=== PATIENT | female | born 1960 | race African-American/Black ===

== ENCOUNTER 2016-07-17 09:44 | Inpatient (IN) | payer OTHER ==
[2016-07-17 09:59] VITALS: BMI 36.3
--- NOTE | 2016-07-17 11:02 | HP ---
COWS - Scale Resting Pulse: 1= [place] 81-100 Sweatin=Flushed/Facial Moisture Restless Observation: 3= Extraneous Movement Pupil Size: 2= Moderately Dilated Bone or Joint Aches: 2= Severe Diffuse Aches Runny Nose/ Eye Tearin= Runny Nose/Eyes GI Upset > 30mins: 3= Vomiting/Diarrhea Tremor Observation: 2= Slight Tremor Visible Yawning Observation: 2= >3x During Session Anxiety or Irritability: 2=Irritable/Anxious Goose Flesh Skin: 0=Smooth Skin COWS Score: 21 CIWA Score - CIWA Score Nausea/Vomitin Muscle Tremors: 3 Anxiety: 3 Agitation: 3 Paroxysmal Sweats: 2 Orientation: 0-Oriented Tacttile Disturbances: 2-Mild Itch/Numbness/Burn Auditory Disturbances: 2-Mild Harshness/Frighten Visual Disturbances: 2-Mild Sensitivity Headache: 2-Mild CIWA-Ar Total Score: 22 Admission ROS BHS - HPI Chief Complaint: I NEED HELP TO STOP HEROIN AND ALCOHOL Allergies/Adverse Reactions: Allergies Allergy/AdvReac Type Severity Reaction Status Date / Time No Known Allergies Allergy Verified 07/17/16 10:40 History of Present Illness: THIS 56 YEARS OLD FEMALE WITH HEROIN AND ALCOHOL DEPENDENCE,WITHDRAWAL SYMPTOM, LAST DETOX 12/07/15 TO 12/11/15 HTN ON MED ANXIETY,INSOMNIA LONGEST PERIOD OF SOBRIETY 12 YEARS Exam Limitations: No Limitations - Ebola screening Have you traveled outside of the country in the last 21 days: No Have you had contact with anyone from an Ebola affected area: No Have you been sick,other than usual withdrawal symptoms: No Do you have a fever: No - Review of Systems Constitutional: Chills, Diaphoresis, Loss of Appetite, Malaise, Night Sweats, Changes in sleep, Weakness EENT: reports: Tearing, Nose Congestion Respiratory: reports: No Symptoms reported Cardiac: reports: Palpitations GI: reports: Diarrhea, Nausea, Vomiting, Abdominal cramping : reports: No Symptoms Reported Musculoskeletal: reports: Back Pain, Joint Pain, Muscle Pain, Joint Stiffness Integumentary: reports: Dryness Neuro: reports: Headache, Tremors Endocrine: reports: No Symptoms Reported Hematology: reports: No Symptoms Reported Psychiatric: reports: Anxious Patient History - Patient Medical History Hx Anemia: No Hx Asthma: No Hx Chronic Obstructive Pulmonary Disease (COPD): No Hx Cancer: No Hx Cardiac Disorders: No Hx Congestive Heart Failure: No Hx Hypertension: Yes (ON MEDS.) Hx Hypercholesterolemia: No Hx Pacemaker: No HX Cerebrovascular Accident: No Hx Seizures: No Hx Dementia: No Hx Diabetes: No Hx Gastrointestinal Disorders: No Hx Liver Disease: No Hx Genitourinary Disorders: No Hx Sexually Transmitted Disorders: No Hx Renal Disease (ESRD): No Hx Thyroid Disease: No Hx Human Immunodeficiency Virus (HIV): No (negative LAST 04/22 ) Hx Hepatitis C: No (negative) Hx Depression: No Hx Suicide Attempt: No Hx Bipolar Disorder: Yes Hx Schizophrenia: No Other Medical History: NO SUIDAL,NO HOMICIDAL - Patient Surgical History Past Surgical History: No - PPD History Previous Implant?: No Documented Results: Positive w/o proof Implanted On Prior [facility] Admission?: No PPD to be Administered?: No - Reproductive History Patient is a Female of Child Bearing Age (11 -55 yrs old): Yes Patient : No - Smoking Cessation Smoking history: Current every day smoker Have you smoked in the past 12 months: Yes Aproximately how many cigarettes per day: 20 Hx Chewing Tobacco Use: No Initiated information on smoking cessation: Yes 'Breaking Loose' booklet given: 07/17/16 - Substance & Tx. History Hx Alcohol Use: Yes Hx Substance Use: Yes Substance Use Type: Alcohol, Heroin Hx Substance Use Treatment: Yes (LAST 12/07/15 TO 12/11/15) - Substances Abused Heroin Route: Inhalation Frequency: Daily Amount used: 8-10 BAGS Age of first use: 18 Date of Last Use: 07/16/16 Alcohol Route: Oral Frequency: Daily Amount used: 1/2 PINT VODKA Age of first use: 18 Date of Last Use: 07/16/16 Family Disease History - Family Disease History Family History: Denies Admission Physical Exam BHS - Vital Signs Vital Signs: Vital Signs - 24 hr 07/17/16 09:57 Temperature 99.0 F Pulse Rate 100 H Respiratory 20 Rate Blood Pressure 180/108 - Physical General Appearance: Yes: Moderate Distress, Tremorous, Irritable, Sweating, Anxious HEENTM: Yes: Nasal Congestion Respiratory: Yes: Lungs Clear Neck: Yes: Within Normal Limits Breast: Yes: Breast Exam Deferred Cardiology: Yes: Tachycardia Abdominal: Yes: Within Normal Limits, Normal Bowel Sounds, Non Tender, Flat, Soft Genitourinary: Yes: Within Normal Limits Back: Yes: Muscle Spasm Musculoskeletal: Yes: Back pain, Joint Stiffness, Muscle Pain Extremities: Yes: Tremors Neurological: Yes: Within Normal Limits, qc analyst II-XII NML intact, Alert, Motor Strength 5/5 Integumentary: Yes: Dry Lymphatic: Yes: Within Normal Limits - Diagnostic (1) Hypertension Current Visit: No Status: Acute (2) Alcohol dependence with uncomplicated withdrawal Current Visit: No Status: Chronic (3) GERD (gastroesophageal reflux disease) Current Visit: No Status: Chronic Qualifiers: Esophagitis presence: without esophagitis Qualified Code(s): K21.9 - Gastro-esophageal reflux disease without esophagitis (4) Nicotine dependence Current Visit: No Status: Chronic Qualifiers: Nicotine product type: cigarettes Substance use status: uncomplicated Qualified Code(s): F17.210 - Nicotine dependence, cigarettes, uncomplicated (5) Opioid dependence with withdrawal Current Visit: No Status: Chronic Comment: Will induce once pt obtains rx for #28 Extensive discussion re:polypharmacy based on rx for klonopin, ambien, hydrocodone (self dc'd) and etoh (6) Bipolar disorder Current Visit: Yes Status: Acute Cleared for Admission [facility] - Detox or Rehab [facility] Level of Care: Medically Managed Detox Regimen/Protocol: Methadone/Librium S Breath Alcohol Content Breath Alcohol Content: 0 Urine Pregancy Test - Result Urine Test Results: Negative- NO Line Present Urine Drug Screen - Results Drug Screen Negative: No Urine Drug Screen Results: OPI-Opiates, TCA-Tricyclic Antidepress, OXY-Oxycodone
[2016-07-17] MEDS ORDERED: guaiFENesin/D-METHORPHAN HB 10 ML UNIT-DOSE CUPS PO PRN (11:11)
[2016-07-17] MEDS ORDERED: MENTHOL/PHENOL 1 EACH UD MM PRN (11:11)
[2016-07-17] MEDS ORDERED: MAGNESIUM CITRATE 300 ML BOTTLE PO PRN (11:11)
[2016-07-17] MEDS ORDERED: MAGNESIUM HYDROX 2400MG/30ML ORAL SUSPENSION 30 ML CUP PO PRN (11:11)
[2016-07-17] MEDS ORDERED: diphenhydrAMINE HCL 50 MG CAPSULE PO PRN (11:11)
[2016-07-17] MEDS ORDERED: IBUPROFEN 400 MG TABLET (FP) PO PRN (11:11)
[2016-07-17] MEDS ORDERED: P-EPHED 60MG/TRIPROLIDI 2.5MG TABLET PO PRN (11:11)
[2016-07-17] MEDS ORDERED: MAG HYDROX/AL HYDROX/SIMETH 30 ML UNIT-DOSE CUP PO PRN (11:11)
[2016-07-17] MEDS ORDERED: ACETAMINOPHEN 325 MG TABLET (FP) PO PRN (11:11)
[2016-07-17] MEDS ORDERED: LOPERAMIDE HCL 2 MG CAPSULE PO PRN (11:11)
[2016-07-17] MEDS ORDERED: chlordiazePOXIDE HCL 25 MG CAPSULE PO ONE (11:49)
[2016-07-17] MEDS ORDERED: METHADONE HCL 10 MG TABLET (FOR DETOX USE ONLY) PO ONE ×2 (11:50→23:00)
[2016-07-17] MEDS: chlordiazePOXIDE HCL 25 MG CAPSULE PO SCH ×2 (17:30→22:15)
[2016-07-17] MEDS: NICOTINE POLACRILEX 2 MG GUM BUC PRN (17:33)
[2016-07-17 19:24] LABS: PH,URINE 5.5 (5.0-8.0); URINE APPEARANCE SL CLOUDY; URINE BILIRUBIN NEGATIVE (NEGATIVE); URINE COLOR LT. YELLOW; URINE GLUCOSE (UA) NEGATIVE (NEGATIVE); URINE KETONE NEGATIVE (NEGATIVE); URINE LEUK ESTERASE NEGATIVE (NEGATIVE); URINE PROTEIN NEGATIVE (NEGATIVE); URINE UROBILINOGEN 0.2 E.U/dl E.U./dl (0.2-1.0)
[2016-07-17 19:36] LABS: URINE BLOOD 1+ (NEGATIVE); URINE NITRITE POSITIVE (NEGATIVE)
[2016-07-17 20:34] LABS: URINE BACTERIA MANY /hpf (NONE SEEN); URINE MUCUS RARE; URINE RBC 1 /hpf (0-3); URINE WBC 14 /hpf (3-5)
[2016-07-17] MEDS: THIAMINE HCL 100 MG TABLET (FP) PO SCH (22:15)
[2016-07-18] MEDS: chlordiazePOXIDE HCL 25 MG CAPSULE PO SCH ×4 (05:18→22:43)
--- NOTE | 2016-07-18 09:15 | CONSULT ---
[facility] Psychiatric Consult - Data Date of interview: 07/18/16 Admission source: [facility] Identifying data: This is 56 years old female with no psychiatric hospitalization history intoxicated with: Alcohol, Opioids and Nicotine Substance Abuse History: - Smoking Cessation. Smoking history: Current every day smoker. Have you smoked in the past 12 months: Yes. Aproximately how many cigarettes per day: 20. Hx Chewing Tobacco Use: No. Initiated information on smoking cessation: Yes. 'Breaking Loose' booklet given: 07/17/16. - Substance & Tx. History. Hx Alcohol Use: Yes. Hx Substance Use: Yes. Substance Use Type : Alcohol, Heroin. Hx Substance Use Treatment: Yes (LAST 12/07/15 TO 12/11/15) . - Substances Abused. Heroin. Route: Inhalation. Frequency: Daily. Amount used: 8-10 BAGS. Age of first use: 18. Date of Last Use: 07/16/16. Alcohol. Route: Oral. Frequency: Daily. Amount used: 1/2 PINT VODKA. Age of first use: 18. Date of Last Use: 07/16/16 Medical History: HTN, GERD Psychiatric History: Patient reports history of Bipolar disorder, denies history of psychioatric admissions, reports taking prior to admission: Depakote 250mh po bid. Seroquel 300mg po qhs. Ambien 10mg po qhs Physical/Sexual Abuse/Trauma History: Denies Additional Comment: Depakote 250mh po bid. Seroquel 300mg po qhs. Ambien 10mg po qhs Mental Status Exam - Mental Status Exam Alert and Oriented to: Person Cognitive Function: Fair Patient Appearance: Unkempt Mood: Sad, Anxious Affect: Mood Congruent Patient Behavior: Cooperative Speech Pattern: Excessive Voice Loudness: Normal Thought Process: Goal Oriented Thought Disorder: Being Controlled Hallucinations: Denies Suicidal Ideation: Denies Homicidal Ideation: Denies Insight/Judgement: Fair Sleep: Difficulty falling asleep Appetite: Weight gain Muscle strength/Tone: Mild Hypotonicity Gait/Station: Normal Additional Comments: Depakote 250mh po bid. Seroquel 300mg po qhs. Ambien 10mg po qhs Psychiatric Findings - Problem List ([place] 1, 2,3) (1) Bipolar disorder Current Visit: Yes Status: Acute (2) Drug-induced mood disorder Current Visit: No Status: Acute (3) Alcohol dependence with uncomplicated withdrawal Current Visit: No Status: Chronic (4) Nicotine dependence Current Visit: No Status: Chronic Qualifiers: Nicotine product type: cigarettes Substance use status: uncomplicated Qualified Code(s): F17.210 - Nicotine dependence, cigarettes, uncomplicated (5) Opioid dependence with withdrawal Current Visit: No Status: Chronic Comment: Will induce once pt obtains rx for #28 Extensive discussion re:polypharmacy based on rx for klonopin, ambien, hydrocodone (self dc'd) and etoh - Initial Treatment Plan Initial Treatment Plan: Depakote 250mh po bid. Seroquel 300mg po qhs. Ambien 10mg po qhs. Blood Depakote level
[2016-07-18] MEDS ORDERED: METHADONE HCL 10 MG TABLET (FOR DETOX USE ONLY) PO SCH (10:00)
[2016-07-18 10:06] LABS: MCHC 33.3 g/dl (32.0-36.0); MEAN CELL VOLUME 87.1 fl (80-96); PLATELET COUNT 208 K/MM3 (134-434); RDW 15.4 % (11.6-15.6)
--- NOTE | 2016-07-18 10:24 | EKG ---
Test Reason : Blood Pressure : / mmHG Vent. Rate : 085 BPM Atrial Rate : 085 BPM P-R Int : 142 ms QRS Dur : 098 ms QT Int : 398 ms P-R-T Axes : 049 007 029 degrees QTc Int : 473 ms NORMAL SINUS RHYTHM MINIMAL VOLTAGE CRITERIA FOR LVH, MAY BE NORMAL VARIANT SEPTAL INFARCT (CITED ON OR BEFORE 17-JUL-2016) ABNORMAL ECG WHEN COMPARED WITH ECG OF 27-JUN-2009 18:22, QUESTIONABLE CHANGE IN INITIAL FORCES OF ANTEROSEPTAL LEADS NONSPECIFIC T WAVE ABNORMALITY NO LONGER EVIDENT IN ANTEROLATERAL LEADS Confirmed by JAJA NINO, KEVIN ([id number]) on 07/18/2016 10:23:50 AM Referred By: Simeon Schmidt Confirmed By:KEVIN WILKINSON MD
[2016-07-18 10:34] LABS: ALBUMIN 3.9 g/dl (3.4-5.0); ALK PHOS 70 U/L (45-117); ANION GAP 8 (8-16); BILIRUBIN,TOTAL 0.4 mg/dL (0.2-1.0); CALCIUM 8.9 mg/dL (8.5-10.1); CO2 26 mmol/L (21-32); CREATININE 0.9 mg/dL (0.55-1.02); GLUCOSE,RANDOM 87 mg/dL (74-106); SGOT/AST 13 U/L (15-37); SGPT/ALT 16 U/L (12-78); TOT PROT 7.7 g/dl (6.4-8.2)
[2016-07-18] MEDS: PRENATAL VITAMINS W/ FOLIC ACID TABLET (FP) PO SCH (10:36)
[2016-07-18] MEDS: DIVALPROEX SODIUM 250 MG TABLET E.C. (FP) PO SCH ×2 (10:37→22:43)
--- NOTE | 2016-07-18 11:03 | PN ---
[facility] CIWA - CIWA Score Nausea/Vomitin-No Nausea/No Vomiting Muscle Tremors: 4-Moderate,w/Arms Extend Anxiety: 3 Agitation: 4-Moderately Restless Paroxysmal Sweats: 3 Orientation: 0-Oriented Tacttile Disturbances: 0-None Auditory Disturbances: 0-None Visual Disturbances: 0-None Headache: 1-Very Mild CIWA-Ar Total Score: 15 BHS COWS - Scale Resting Pulse: 1= [place] 81-100 Sweatin=Flushed/Facial Moisture Restless Observation: 1= Difficult to Sit Still Pupil Size: 0= Normal to Room Light Bone or Joint Aches: 1= Mild Discomfort Runny Nose/ Eye Tearin= Nasal Congestion GI Upset > 30mins: 2= Nausea/Diarrhea Tremor Observation of Outstretched Hands: 2= Slight Tremor Visible Yawning Observation: 0= None Anxiety or Irritability: 1=Feels Anxious/Irritable Goose Flesh Skin: 3=Piloerection COWS Score: 14 S Progress Note (SOAP) Subjective: agitation anxiety sweats shakes interrupted sleep irritable Objective: 07/18/16 11:02 Vital Signs Temperature 97.7 F 07/18/16 10:01 Pulse Rate 82 07/18/16 10:01 Respiratory Rate 18 07/18/16 10:01 Blood Pressure 150/100 07/18/16 10:01 O2 Sat by Pulse Oximetry (%) Laboratory Tests 07/17/16 07/18/16 07/18/16 14:00 06:00 06:00 WBC 6.0 RBC 4.35 Hgb 12.6 Hct 37.9 MCV 87.1 MCHC 33.3 RDW 15.4 Plt Count 208 D MPV 10.0 Sodium 139 Potassium 4.2 Chloride 105 Carbon Dioxide 26 Anion Gap 8 BUN 16 D Creatinine 0.9 Creat Clearance w eGFR > 60 Random Glucose 87 D Calcium 8.9 Total Bilirubin 0.4 D AST 13 L ALT 16 D Alkaline Phosphatase 70 Total Protein 7.7 Albumin 3.9 Urine Color Lt. yellow Urine Appearance Sl cloudy Urine pH 5.5 Ur Specific [place] 1.020 Urine Protein Negative Urine Glucose (UA) Negative Urine Ketones Negative Urine Blood 1+ H Urine Nitrite Positive Urine Bilirubin Negative Urine Urobilinogen 0.2 e.u/dl Ur Leukocyte Esterase Negative Urine RBC 1 Urine WBC 14 Ur Epithelial Cells Rare Urine Bacteria Many Urine Mucus Rare RPR Titer 07/18/16 06:00 WBC RBC Hgb Hct MCV MCHC RDW Plt Count MPV Sodium Potassium Chloride Carbon Dioxide Anion Gap BUN Creatinine Creat Clearance w eGFR Random Glucose Calcium Total Bilirubin AST ALT Alkaline Phosphatase Total Protein Albumin Urine Color Urine Appearance Urine pH Ur Specific [place] Urine Protein Urine Glucose (UA) Urine Ketones Urine Blood Urine Nitrite Urine Bilirubin Urine Urobilinogen Ur Leukocyte Esterase Urine RBC Urine WBC Ur Epithelial Cells Urine Bacteria Urine Mucus RPR Titer Nonreactive awake/alert ambulating no acute distress Assessment: 07/18/16 11:03 withdrawal sx Plan: continue detox increase fluids
[2016-07-18] MEDS: NICOTINE POLACRILEX 2 MG GUM BUC PRN ×2 (13:08→22:58)
[2016-07-18] MEDS: chlordiazePOXIDE HCL 25 MG CAPSULE PO PRN (15:12)
[2016-07-18] MEDS: THIAMINE HCL 100 MG TABLET (FP) PO SCH (22:42)
[2016-07-18] MEDS: QUEtiapine FUMARATE 300 MG TABLET PO SCH (22:43)
[2016-07-19] MEDS: chlordiazePOXIDE HCL 25 MG CAPSULE PO SCH ×2 (05:44→10:31)
--- NOTE | 2016-07-19 10:04 | PN ---
[facility] CIWA - CIWA Score Nausea/Vomitin-No Nausea/No Vomiting Muscle Tremors: 3 Anxiety: 3 Agitation: 3 Paroxysmal Sweats: 3 Orientation: 0-Oriented Tacttile Disturbances: 0-None Auditory Disturbances: 0-None Visual Disturbances: 0-None Headache: 1-Very Mild CIWA-Ar Total Score: 13 BHS COWS - Scale Resting Pulse: 2= [place] 101-120 Sweatin=Flushed/Facial Moisture Restless Observation: 1= Difficult to Sit Still Pupil Size: 0= Normal to Room Light Bone or Joint Aches: 2= Severe Diffuse Aches Runny Nose/ Eye Tearin= None GI Upset > 30mins: 2= Nausea/Diarrhea Tremor Observation of Outstretched Hands: 2= Slight Tremor Visible Yawning Observation: 2= >3x During Session Anxiety or Irritability: 1=Feels Anxious/Irritable Goose Flesh Skin: 0=Smooth Skin COWS Score: 14 BHS Progress Note (SOAP) Subjective: shakes sweats irritable anxious Objective: 07/19/16 10:04 Vital Signs Temperature 97.5 F L 07/19/16 06:04 Pulse Rate 74 07/19/16 06:04 Respiratory Rate 20 07/19/16 06:04 Blood Pressure 101/63 07/19/16 06:04 O2 Sat by Pulse Oximetry (%) Laboratory Tests 07/17/16 07/18/16 07/18/16 14:00 06:00 06:00 WBC 6.0 RBC 4.35 Hgb 12.6 Hct 37.9 MCV 87.1 MCHC 33.3 RDW 15.4 Plt Count 208 D MPV 10.0 Sodium 139 Potassium 4.2 Chloride 105 Carbon Dioxide 26 Anion Gap 8 BUN 16 D Creatinine 0.9 Creat Clearance w eGFR > 60 Random Glucose 87 D Calcium 8.9 Total Bilirubin 0.4 D AST 13 L ALT 16 D Alkaline Phosphatase 70 Total Protein 7.7 Albumin 3.9 Urine Color Lt. yellow Urine Appearance Sl cloudy Urine pH 5.5 Ur Specific [place] 1.020 Urine Protein Negative Urine Glucose (UA) Negative Urine Ketones Negative Urine Blood 1+ H Urine Nitrite Positive Urine Bilirubin Negative Urine Urobilinogen 0.2 e.u/dl Ur Leukocyte Esterase Negative Urine RBC 1 Urine WBC 14 Ur Epithelial Cells Rare Urine Bacteria Many Urine Mucus Rare RPR Titer 07/18/16 06:00 WBC RBC Hgb Hct MCV MCHC RDW Plt Count MPV Sodium Potassium Chloride Carbon Dioxide Anion Gap BUN Creatinine Creat Clearance w eGFR Random Glucose Calcium Total Bilirubin AST ALT Alkaline Phosphatase Total Protein Albumin Urine Color Urine Appearance Urine pH Ur Specific [place] Urine Protein Urine Glucose (UA) Urine Ketones Urine Blood Urine Nitrite Urine Bilirubin Urine Urobilinogen Ur Leukocyte Esterase Urine RBC Urine WBC Ur Epithelial Cells Urine Bacteria Urine Mucus RPR Titer Nonreactive awake/alert ambulating no acute distress Assessment: 07/19/16 10:05 withdrawal sx Plan: continue detox increase fluids
[2016-07-19] MEDS: PRENATAL VITAMINS W/ FOLIC ACID TABLET (FP) PO SCH (10:31)
[2016-07-19] MEDS: DIVALPROEX SODIUM 250 MG TABLET E.C. (FP) PO SCH ×2 (10:31→22:36)
[2016-07-19] MEDS: METHADONE HCL 5 MG TABLET (FOR DETOX USE ONLY) PO SCH (10:31)
[2016-07-19] MEDS: NICOTINE POLACRILEX 2 MG GUM BUC PRN (12:49)
[2016-07-19] MEDS: chlordiazePOXIDE 5 MG CAPSULE PO SCH ×2 (17:27→22:37)
[2016-07-19] MEDS: ZOLPIDEM TARTRATE 10 MG TABLET (PARK CARE ONLY) PO PRN (22:37)
[2016-07-19] MEDS: THIAMINE HCL 100 MG TABLET (FP) PO SCH (22:37)
[2016-07-19] MEDS: QUEtiapine FUMARATE 300 MG TABLET PO SCH (22:37)
[2016-07-20] MEDS: chlordiazePOXIDE 5 MG CAPSULE PO SCH ×2 (06:18→10:22)
--- NOTE | 2016-07-20 10:14 | PN ---
BHS Progress Note (SOAP) Subjective: anxious, restless, poor sleep Objective: 07/20/16 10:14 Laboratory Tests 07/17/16 07/18/16 07/18/16 14:00 06:00 06:00 WBC 6.0 RBC 4.35 Hgb 12.6 Hct 37.9 MCV 87.1 MCHC 33.3 RDW 15.4 Plt Count 208 D MPV 10.0 Sodium 139 Potassium 4.2 Chloride 105 Carbon Dioxide 26 Anion Gap 8 BUN 16 D Creatinine 0.9 Creat Clearance w eGFR > 60 Random Glucose 87 D Calcium 8.9 Total Bilirubin 0.4 D AST 13 L ALT 16 D Alkaline Phosphatase 70 Total Protein 7.7 Albumin 3.9 Urine Color Lt. yellow Urine Appearance Sl cloudy Urine pH 5.5 Ur Specific [place] 1.020 Urine Protein Negative Urine Glucose (UA) Negative Urine Ketones Negative Urine Blood 1+ H Urine Nitrite Positive Urine Bilirubin Negative Urine Urobilinogen 0.2 e.u/dl Ur Leukocyte Esterase Negative Urine RBC 1 Urine WBC 14 Ur Epithelial Cells Rare Urine Bacteria Many Urine Mucus Rare Valproic Acid RPR Titer 07/18/16 07/19/16 06:00 06:00 WBC RBC Hgb Hct MCV MCHC RDW Plt Count MPV Sodium Potassium Chloride Carbon Dioxide Anion Gap BUN Creatinine Creat Clearance w eGFR Random Glucose Calcium Total Bilirubin AST ALT Alkaline Phosphatase Total Protein Albumin Urine Color Urine Appearance Urine pH Ur Specific [place] Urine Protein Urine Glucose (UA) Urine Ketones Urine Blood Urine Nitrite Urine Bilirubin Urine Urobilinogen Ur Leukocyte Esterase Urine RBC Urine WBC Ur Epithelial Cells Urine Bacteria Urine Mucus Valproic Acid < 3.000 L RPR Titer Nonreactive Vital Signs - 24 hr 07/19/16 07/19/16 07/19/16 10:38 14:37 18:02 Temperature 97.9 F 98.8 F 98.2 F Pulse Rate 110 H 92 H 85 Respiratory 16 16 18 Rate Blood Pressure 126/72 131/77 121/80 07/19/16 07/20/16 07/20/16 22:44 03:30 06:39 Temperature 98.1 F 98.2 F Pulse Rate 84 98 H Respiratory 18 18 20 Rate Blood Pressure 133/86 102/54 Assessment: 07/20/16 10:14 ongoing withdrawal Plan: continue detox protocol
[2016-07-20] MEDS: METHADONE HCL 5 MG TABLET (FOR DETOX USE ONLY) PO SCH (10:22)
[2016-07-20] MEDS: DIVALPROEX SODIUM 250 MG TABLET E.C. (FP) PO SCH ×2 (10:22→23:01)
[2016-07-20] MEDS: PRENATAL VITAMINS W/ FOLIC ACID TABLET (FP) PO SCH (10:22)
[2016-07-20] MEDS: chlordiazePOXIDE HCL 25 MG CAPSULE PO PRN (11:17)
[2016-07-20] MEDS: NICOTINE POLACRILEX 2 MG GUM BUC PRN (13:07)
[2016-07-20] MEDS: CYCLOBENZAPRINE HCL 10 MG TABLET (FP) PO PRN ×2 (14:49→23:01)
[2016-07-20] MEDS: hydrOXYzine PAMOATE 50 MG CAPSULE (FP) PO PRN (15:33)
[2016-07-20] MEDS: chlordiazePOXIDE HCL 10 MG CAPSULE PO SCH ×2 (18:08→23:00)
[2016-07-20] MEDS: ZOLPIDEM TARTRATE 10 MG TABLET (PARK CARE ONLY) PO PRN (23:01)
[2016-07-20] MEDS: QUEtiapine FUMARATE 300 MG TABLET PO SCH (23:01)
[2016-07-20] MEDS: THIAMINE HCL 100 MG TABLET (FP) PO SCH (23:01)
[2016-07-21] MEDS: chlordiazePOXIDE HCL 10 MG CAPSULE PO SCH ×2 (05:29→10:51)
[2016-07-21] MEDS ORDERED: METHADONE HCL 10 MG TABLET (FOR DETOX USE ONLY) PO SCH (10:00)
[2016-07-21] MEDS: PRENATAL VITAMINS W/ FOLIC ACID TABLET (FP) PO SCH (10:51)
[2016-07-21] MEDS: CYCLOBENZAPRINE HCL 10 MG TABLET (FP) PO PRN ×2 (10:51→17:35)
[2016-07-21] MEDS: DIVALPROEX SODIUM 250 MG TABLET E.C. (FP) PO SCH ×2 (10:51→22:29)
[2016-07-21] MEDS: hydrOXYzine PAMOATE 50 MG CAPSULE (FP) PO PRN (17:35)
[2016-07-21] MEDS: ZOLPIDEM TARTRATE 10 MG TABLET (PARK CARE ONLY) PO PRN (20:30)
[2016-07-21] MEDS: QUEtiapine FUMARATE 300 MG TABLET PO SCH (22:30)
[2016-07-21] MEDS: THIAMINE HCL 100 MG TABLET (FP) PO SCH (22:31)
[2016-07-22] MEDS ORDERED: METHADONE HCL 5 MG TABLET (FOR DETOX USE ONLY) PO SCH (06:00)
[2016-07-22 07:26] VITALS: PULSE 93; TEMP 96.8
[2016-07-22 07:37] VITALS: BP 103/69
--- NOTE | 2016-07-22 08:31 | PN ---
S Progress Note (SOAP) Subjective: ALERT,INTERRUPTED SLEEP Objective: 07/22/16 08:27 07/22/16 08:27 T98.1 P99 R18 BP112/71 Assessment: 07/22/16 08:28 WITHDRAWAL SYMPTOM Plan: CONTINUE DETOX,DISCHARGE IN AM ADDENDUM THIS NOTE IS FOR 05/21/17
--- NOTE | 2016-07-22 08:32 | PN ---
S Progress Note (SOAP) Subjective: ALERT,NO COMPLAINT Objective: 07/22/16 08:31 Vital Signs Temperature 96.8 F L 07/22/16 06:00 Pulse Rate 93 H 07/22/16 06:00 Respiratory Rate 18 07/22/16 06:00 Blood Pressure 103/69 07/22/16 06:00 O2 Sat by Pulse Oximetry (%) Assessment: 07/22/16 08:31 DETOX COMPLETED,NO WITHDRAWAL SYMPTOM 07/22/16 08:32 Plan: DISCHARGE TODAY,FOLLOW UP WITH AFTER CARE PROGRAM ARRANGEMENT
--- NOTE | 2016-07-22 08:38 | DS ---
[facility] Detox Discharge Summary Admission Date: 07/17/16 Discharge Date: 07/22/16 - History Present History: Alcohol Dependence, Opioid Dependence Additional Comments: FOLLOW UP WITH AFTER [facility] PROGRAM ARRANGEMENT AND PMD FOR MEDICAL PROBLEM Pertinent Past History: HYPERTENSION GERD - Physical Exam Results Vital Signs: Vital Signs Temperature 96.8 F L 07/22/16 06:00 Pulse Rate 93 H 07/22/16 06:00 Respiratory Rate 18 07/22/16 06:00 Blood Pressure 103/69 07/22/16 06:00 O2 Sat by Pulse Oximetry (%) Pertinent Admission Physical Exam Findings: WITHDRAWAL SYMPTOM - Treatment Hospital Course: Detox Protocol Followed, Detoxed Safely, Responded well, Discharged Condition Good Patient has Accepted a Rehab Referral to: DECLINED - Medication Discharge Medications: Ambulatory Orders Azilsartan Med/Chlorthalidone [Edarbyclor 40-25 mg Tablet] 1 each PO DAILY 12/06 Divalproex [Depakote -] 250 mg PO BID #60 tablet.ec 07/18/16 Quetiapine Fumarate [Seroquel -] 300 mg PO HS #30 tab 07/18/16 Zolpidem Tartrate [Ambien] 10 mg PO HS PRN #14 tablet MDD 10 07/18/16 - Diagnosis (1) Hypertension Current Visit: No Status: Acute (2) Alcohol dependence with uncomplicated withdrawal Current Visit: No Status: Chronic (3) GERD (gastroesophageal reflux disease) Current Visit: No Status: Chronic Qualifiers: Esophagitis presence: without esophagitis Qualified Code(s): K21.9 - Gastro-esophageal reflux disease without esophagitis (4) Nicotine dependence Current Visit: No Status: Chronic Qualifiers: Nicotine product type: cigarettes Substance use status: uncomplicated Qualified Code(s): F17.210 - Nicotine dependence, cigarettes, uncomplicated (5) Opioid dependence with withdrawal Current Visit: No Status: Chronic (6) Bipolar disorder Current Visit: Yes Status: Acute - AMA Did Patient Leave Against Medical Advice: No
== END 2016-07-22 09:45 | disposition home or self-care (01) | DRG 897 ==
LOC: YASAS 09:44 → Y6N 11:43
PROVIDERS: ADMIT Internal Medicine Addiction Medicine; ATTEND Internal Medicine Addiction Medicine
PROC: HZ2ZZZZ Detoxification Services for Substance Abuse Treatment (ICD-10-PCS; principal; 2016-07-17)
DX: F19.230 Other psychoactive substance dependence with withdrawal, uncomplicated (principal); F11.23 Opioid dependence with withdrawal; F10.230 Alcohol dependence with withdrawal, uncomplicated; F17.210 Nicotine dependence, cigarettes, uncomplicated; F19.24 Other psychoactive substance dependence with psychoactive substance-induced mood disorder; F41.9 Anxiety disorder, unspecified; F31.9 Bipolar disorder, unspecified; I10 Essential (primary) hypertension; K21.9 Gastro-esophageal reflux disease without esophagitis; G47.00 Insomnia, unspecified; R00.0 Tachycardia, unspecified
CPT/HCPCS: 36415; 71020-TC; 80053; 80164; 81003; 81015; 85027; 86593; 93005; 93010

== ENCOUNTER 2016-08-20 11:55 | Inpatient (IN) | payer OTHER ==
[2016-08-20 13:01] VITALS: BMI 40.5
--- NOTE | 2016-08-20 15:30 | HP ---
COWS - Scale Resting Pulse: 2= [place] 101-120 Sweatin=Flushed/Facial Moisture Restless Observation: 1= Difficult to Sit Still Pupil Size: 0= Normal to Room Light Bone or Joint Aches: 1= Mild Discomfort Runny Nose/ Eye Tearin= Runny Nose/Eyes GI Upset > 30mins: 2= Nausea/Diarrhea Tremor Observation: 2= Slight Tremor Visible Yawning Observation: 2= >3x During Session Anxiety or Irritability: 2=Irritable/Anxious Goose Flesh Skin: 3=Piloerection COWS Score: 19 CIWA Score - CIWA Score Nausea/Vomitin-No Nausea/No Vomiting Muscle Tremors: 4-Moderate,w/Arms Extend Anxiety: 4-Mod. Anxious/Guarded Agitation: 4-Moderately Restless Paroxysmal Sweats: 3 Orientation: 0-Oriented Tacttile Disturbances: 0-None Auditory Disturbances: 0-None Visual Disturbances: 0-None Headache: 1-Very Mild CIWA-Ar Total Score: 16 Admission ROS BHS - HPI Chief Complaint: I am tired and need help. Allergies/Adverse Reactions: Allergies Allergy/AdvReac Type Severity Reaction Status Date / Time No Known Allergies Allergy Verified 08/20/16 15:03 History of Present Illness: pt is a 56yr old male with a history of alcohol, heroin and xanax dependence seeking detox for treatment. Exam Limitations: No Limitations - Ebola screening Have you traveled outside of the country in the last 21 days: No Have you had contact with anyone from an Ebola affected area: No Have you been sick,other than usual withdrawal symptoms: No Do you have a fever: No - Review of Systems Constitutional: Chills, Diaphoresis, Night Sweats, Changes in sleep EENT: reports: Tearing, Nose Congestion Respiratory: reports: No Symptoms reported Cardiac: reports: No Symptoms Reported GI: reports: Nausea, Poor Appetite, Poor Fluid Intake, Vomiting Musculoskeletal: reports: Back Pain, Joint Pain, Muscle Pain Integumentary: reports: Flushing, Sweating Neuro: reports: Headache, Tingling, Tremors Endocrine: reports: Excessive Sweating, Flushing, Intolerance to Cold, Intolerance to Heat Hematology: reports: No Symptoms Reported Psychiatric: reports: Judgement Intact, Mood/Affect Appropiate, Orientated x3, Agitated, Anxious Other Systems: Reviewed and Negative Patient History - Patient Medical History Hx Anemia: No Hx Asthma: No Hx Chronic Obstructive Pulmonary Disease (COPD): No Hx Cancer: No Hx Cardiac Disorders: No Hx Congestive Heart Failure: No Hx Hypertension: Yes (ON MEDS.) Hx Hypercholesterolemia: No Hx Pacemaker: No HX Cerebrovascular Accident: No Hx Seizures: No Hx Dementia: No Hx Diabetes: No Hx Gastrointestinal Disorders: No Hx Liver Disease: No Hx Genitourinary Disorders: No Hx Sexually Transmitted Disorders: No Hx Renal Disease (ESRD): No Hx Thyroid Disease: No Hx Human Immunodeficiency Virus (HIV): No (negative LAST 04/22 ) Hx Hepatitis C: No (negative) Hx Depression: Yes Hx Suicide Attempt: No (denies) Hx Bipolar Disorder: Yes Hx Schizophrenia: No - Patient Surgical History Past Surgical History: No - PPD History Previous Implant?: Yes Documented Results: Positive w/proof Results: CXR 07/18/16 PPD to be Administered?: No - Reproductive History Patient is a Female of Child Bearing Age (11 -55 yrs old): No Patient : No - Smoking Cessation Smoking history: Current every day smoker Have you smoked in the past 12 months: Yes Aproximately how many cigarettes per day: 20 Hx Chewing Tobacco Use: No Initiated information on smoking cessation: Yes 'Breaking Loose' booklet given: 08/20/16 - Substance & Tx. History Hx Alcohol Use: Yes Hx Substance Use: Yes Substance Use Type: Alcohol, Heroin Hx Substance Use Treatment: Yes Family Disease History - Family Disease History Family History: Denies Admission Physical Exam BHS - Vital Signs Vital Signs: Vital Signs - 24 hr 08/20/16 12:59 Temperature 97.4 F L Pulse Rate 103 H Respiratory 20 Rate Blood Pressure 161/118 - Physical General Appearance: Yes: Appropriately Dressed, Moderate Distress, Obese, Tremorous, Irritable, Sweating, Anxious HEENTM: Yes: Normal Voice Respiratory: Yes: Lungs Clear, Normal Breath Sounds, No Respiratory Distress Neck: Yes: No masses,lesions,Nodules Breast: Yes: Within Normal Limits Cardiology: Yes: Regular Rhythm, Regular Rate, S1, S2 Abdominal: Yes: Normal Bowel Sounds, Non Tender, Soft Genitourinary: Yes: Within Normal Limits Back: Yes: Normal Inspection Musculoskeletal: Yes: full range of Motion Extremities: Yes: Normal Capillary Refill, Normal Inspection, Tremors Neurological: Yes: Fully Oriented, Alert, Normal Response Integumentary: Yes: Normal Color, Diaphoresis Lymphatic: Yes: Within Normal Limits - Diagnostic (1) Alcohol dependence with uncomplicated withdrawal Current Visit: Yes Status: Chronic (2) GERD (gastroesophageal reflux disease) Current Visit: Yes Status: Chronic Qualifiers: Esophagitis presence: without esophagitis Qualified Code(s): K21.9 - Gastro-esophageal reflux disease without esophagitis (3) Hypertension Current Visit: Yes Status: Chronic Qualifiers: Hypertension type: essential hypertension Qualified Code(s): I10 - Essential (primary) hypertension (4) Nicotine dependence Current Visit: Yes Status: Chronic Qualifiers: Nicotine product type: cigarettes Substance use status: uncomplicated Qualified Code(s): F17.210 - Nicotine dependence, cigarettes, uncomplicated (5) Opioid dependence with withdrawal Current Visit: No Status: Chronic Comment: Will induce once pt obtains rx for #28 Extensive discussion re:polypharmacy based on rx for klonopin, ambien, hydrocodone (self dc'd) and etoh (6) Sedative, hypnotic or anxiolytic dependence with withdrawal, uncomplicated Current Visit: Yes Status: Acute Cleared for Admission [facility] - Detox or Rehab [facility] Level of Care: Medically Managed Detox Regimen/Protocol: Methadone/Librium [facility] Breath Alcohol Content Breath Alcohol Content: 0 Urine Pregancy Test - Result Urine Test Results: Negative- NO Line Present Urine Drug Screen - Results Urine Drug Screen Results: OPI-Opiates, BZO-Benzodiazepines, TCA-Tricyclic Antidepress, OXY-Oxycodone
[2016-08-20] MEDS ORDERED: LOPERAMIDE HCL 2 MG CAPSULE PO PRN (15:31)
[2016-08-20] MEDS ORDERED: MAG HYDROX/AL HYDROX/SIMETH 30 ML UNIT-DOSE CUP PO PRN (15:31)
[2016-08-20] MEDS ORDERED: MAGNESIUM HYDROX 2400MG/30ML ORAL SUSPENSION 30 ML CUP PO PRN (15:31)
[2016-08-20] MEDS ORDERED: MAGNESIUM CITRATE 300 ML BOTTLE PO PRN (15:31)
[2016-08-20] MEDS ORDERED: P-EPHED 60MG/TRIPROLIDI 2.5MG TABLET PO PRN (15:31)
[2016-08-20] MEDS ORDERED: MENTHOL/PHENOL 1 EACH UD MM PRN (15:31)
[2016-08-20] MEDS ORDERED: diphenhydrAMINE HCL 50 MG CAPSULE PO PRN (15:31)
[2016-08-20] MEDS ORDERED: IBUPROFEN 400 MG TABLET (FP) PO PRN (15:31)
[2016-08-20] MEDS ORDERED: ACETAMINOPHEN 325 MG TABLET (FP) PO PRN (15:31)
[2016-08-20] MEDS ORDERED: NICOTINE POLACRILEX 4 MG GUM BC PRN (15:31)
[2016-08-20] MEDS ORDERED: guaiFENesin/D-METHORPHAN HB 10 ML UNIT-DOSE CUPS PO PRN (15:31)
[2016-08-20] MEDS ORDERED: chlordiazePOXIDE HCL 25 MG CAPSULE PO ONE (15:56)
[2016-08-20] MEDS ORDERED: METHADONE HCL 10 MG TABLET (FOR DETOX USE ONLY) PO ONE ×2 (16:30→23:00)
[2016-08-20] MEDS: LOSARTAN POTASSIUM 50 MG TABLET (FP) PO SCH (18:04)
[2016-08-20] MEDS: CHLORTHALIDONE 25 MG TABLET PO SCH (18:05)
[2016-08-20] MEDS: chlordiazePOXIDE HCL 25 MG CAPSULE PO SCH ×2 (18:08→22:02)
[2016-08-20] MEDS: THIAMINE HCL 100 MG TABLET (FP) PO SCH (22:01)
[2016-08-20 22:57] LABS: URINE APPEARANCE CLOUDY; URINE BILIRUBIN NEGATIVE (NEGATIVE); URINE COLOR YELLOW; URINE GLUCOSE (UA) NEGATIVE (NEGATIVE); URINE KETONE NEGATIVE (NEGATIVE); URINE NITRITE POSITIVE (NEGATIVE); URINE UROBILINOGEN NEGATIVE E.U./dl (0.2-1.0)
[2016-08-20 22:58] LABS: URINE BLOOD 2+ (NEGATIVE); URINE LEUK ESTERASE 2+ (NEGATIVE); URINE PROTEIN 1+ (NEGATIVE)
[2016-08-20 23:06] LABS: URINE BACTERIA MANY /hpf (NONE SEEN); URINE MUCUS FEW; URINE RBC 4 /hpf (0-3); URINE WBC 57 /hpf (3-5)
[2016-08-21] MEDS: chlordiazePOXIDE HCL 25 MG CAPSULE PO PRN ×2 (04:02→15:37)
[2016-08-21] MEDS: chlordiazePOXIDE HCL 25 MG CAPSULE PO SCH ×4 (05:44→22:27)
[2016-08-21] MEDS ORDERED: cloNIDine HCL 0.1 MG TABLET PO ONE (08:44)
[2016-08-21] MEDS ORDERED: METHADONE HCL 10 MG TABLET (FOR DETOX USE ONLY) PO SCH (10:00)
[2016-08-21] MEDS: PRENATAL VITAMINS W/ FOLIC ACID TABLET (FP) PO SCH (10:07)
[2016-08-21 10:09] LABS: MCH 29.3 pg (25.7-33.7); MCHC 33.2 g/dl (32.0-36.0); MEAN CELL VOLUME 88.1 fl (80-96); MEAN PLT VOLUME 9.8 fl (7.5-11.1); PLATELET COUNT 170 K/MM3 (134-434); RDW 16.1 % (11.6-15.6); WHITE BLOOD COUNT 5.4 K/mm3 (4.0-10.0)
[2016-08-21 10:39] LABS: ALBUMIN 4.1 g/dl (3.4-5.0); ALK PHOS 85 U/L (45-117); ANION GAP 10 (8-16); BILIRUBIN,TOTAL 0.3 mg/dL (0.2-1.0); CALCIUM 8.8 mg/dL (8.5-10.1); CO2 28 mmol/L (21-32); CREATININE 0.9 mg/dL (0.55-1.02); GLUCOSE,RANDOM 97 mg/dL (74-106); SGOT/AST 14 U/L (15-37); SGPT/ALT 17 U/L (12-78); TOT PROT 8.2 g/dl (6.4-8.2)
--- NOTE | 2016-08-21 10:47 | EKG ---
Test Reason : Blood Pressure : / mmHG Vent. Rate : 096 BPM Atrial Rate : 096 BPM P-R Int : 152 ms QRS Dur : 090 ms QT Int : 370 ms P-R-T Axes : 048 003 009 degrees QTc Int : 467 ms NORMAL SINUS RHYTHM POSSIBLE LEFT ATRIAL ENLARGEMENT LEFT VENTRICULAR HYPERTROPHY CANNOT RULE OUT SEPTAL INFARCT (CITED ON OR BEFORE 17-JUL-2016) ABNORMAL ECG WHEN COMPARED WITH ECG OF 17-JUL-2016 12:51, T WAVE VARIATION Confirmed by VINCENZO VERA MD ([id number]) on 08/21/2016 10:46:58 AM Referred By: Confirmed By:VINCENZO VERA MD
[2016-08-21] MEDS: LOSARTAN POTASSIUM 50 MG TABLET (FP) PO SCH (11:00)
[2016-08-21] MEDS: CHLORTHALIDONE 25 MG TABLET PO SCH (11:01)
[2016-08-21] MEDS ORDERED: LEVOFLOXACIN 500 MG TABLET (FP) PO ONE (12:03)
--- NOTE | 2016-08-21 12:03 | PN ---
[facility] CIWA - CIWA Score Nausea/Vomitin Muscle Tremors: 3 Anxiety: 3 Agitation: 3 Paroxysmal Sweats: 3 Orientation: 0-Oriented Tacttile Disturbances: 2-Mild Itch/Numbness/Burn Auditory Disturbances: 0-None Visual Disturbances: 0-None Headache: 0-None Present CIWA-Ar Total Score: 17 BHS COWS - Scale Resting Pulse: 1= [place] 81-100 Sweatin= Chills/Flushing Restless Observation: 1= Difficult to Sit Still Pupil Size: 1= Pupils >than Normal Bone or Joint Aches: 2= Severe Diffuse Aches Runny Nose/ Eye Tearin= Nasal Congestion GI Upset > 30mins: 2= Nausea/Diarrhea Tremor Observation of Outstretched Hands: 2= Slight Tremor Visible Yawning Observation: 1= 1-2x During Session Anxiety or Irritability: 2=Irritable/Anxious Goose Flesh Skin: 0=Smooth Skin COWS Score: 14 S Progress Note (SOAP) Subjective: intwrrupted sleep, sweats, shakes,bone pains , headache Objective: 08/21/16 12:01 Vital Signs Period Temp Pulse Resp BP Sys/Andrade Pulse Ox Last 24 Hr 97.4 F-98.2 F 83-103 18-20 148-165/93-118 Laboratory Tests 08/20/16 08/21/16 08/21/16 22:40 05:50 05:50 WBC 5.4 RBC 4.24 Hgb 12.4 Hct 37.3 MCV 88.1 MCHC 33.2 RDW 16.1 H Plt Count 170 MPV 9.8 Sodium 142 Potassium 4.1 Chloride 104 Carbon Dioxide 28 Anion Gap 10 BUN 16 Creatinine 0.9 Creat Clearance w eGFR > 60 Random Glucose 97 Calcium 8.8 Total Bilirubin 0.3 D AST 14 L ALT 17 Alkaline Phosphatase 85 D Total Protein 8.2 Albumin 4.1 Urine Color Yellow Urine Appearance Cloudy Urine pH 5.0 Ur Specific [place] 1.023 Urine Protein 1+ H Urine Glucose (UA) Negative Urine Ketones Negative Urine Blood 2+ H Urine Nitrite Positive Urine Bilirubin Negative Urine Urobilinogen Negative Ur Leukocyte Esterase 2+ H Urine RBC 4 Urine WBC 57 Ur Epithelial Cells Few Urine Bacteria Many Urine Mucus Few pt aox3 lying in bed irritable 11/15/16 12:50 Assessment: 08/21/16 12:02 withdrawl sx's uti 11/15/16 12:50 Plan: cont. detox increase fluids levaguin 500mg /d x 5 tylenol prn
--- NOTE | 2016-08-21 16:39 | CONSULT ---
[facility] Psychiatric Consult - Data Date of interview: 08/21/16 Admission source: [facility] Identifying data: Readmission to [facility] for this Substance Abuse History: - Smoking Cessation. Smoking history: Current every day smoker. Have you smoked in the past 12 months: Yes. Aproximately how many cigarettes per day: 20. Hx Chewing Tobacco Use: No. Initiated information on smoking cessation: Yes. 'Breaking Loose' booklet given: 08/20/16. - Substance & Tx. History. Hx Alcohol Use: Yes. Hx Substance Use: Yes. Substance Use Type : Alcohol, Heroin. Hx Substance Use Treatment: Yes Medical History: Hypertension. Psychiatric History: No reported history of psychiatric hospitalizations.Diagnosed with Bipolar Disorder.Followed at [facility] outpatient drug program.Medications : seroquel 300 mg/hs + ambien 10 mg/hs + depakote 250 mg po bid.No history of suicide attempts. Physical/Sexual Abuse/Trauma History: Patient denies. Additional Comment: Urine Drug Screen Results: OPI-Opiates, BZO-Benzodiazepines , TCA-Tricyclic Antidepress, OXY-Oxycodone.Noted. Mental Status Exam - Mental Status Exam Alert and Oriented to: Time, Place, Person Cognitive Function: Good Patient Appearance: Well Groomed Mood: Hopeful, Euthymic Affect: Appropriate, Normal Range Patient Behavior: Appropriate, Cooperative Speech Pattern: Clear, Appropriate Voice Loudness: Normal Thought Process: Goal Oriented Thought Disorder: Not Present Hallucinations: Denies Suicidal Ideation: Denies Homicidal Ideation: Denies Insight/Judgement: Fair Sleep: Poorly, Difficulty falling asleep Appetite: Good Muscle strength/Tone: Normal Gait/Station: Normal Psychiatric Findings - Problem List ([place] 1, 2,3) (1) Sedative, hypnotic or anxiolytic dependence with withdrawal, uncomplicated Current Visit: Yes Status: Acute (2) Alcohol dependence with uncomplicated withdrawal Current Visit: Yes Status: Acute (3) Nicotine dependence Current Visit: Yes Status: Acute Qualifiers: Nicotine product type: cigarettes Substance use status: uncomplicated Qualified Code(s): F17.210 - Nicotine dependence, cigarettes, uncomplicated (4) Opioid dependence with withdrawal Current Visit: Yes Status: Acute Comment: Will induce once pt obtains rx for #28 Extensive discussion re:polypharmacy based on rx for klonopin, ambien, hydrocodone (self dc'd) and etoh (5) Substance induced mood disorder Current Visit: Yes Status: Acute (6) Bipolar disorder Current Visit: Yes Status: Chronic (7) GERD (gastroesophageal reflux disease) Current Visit: Yes Status: Chronic Qualifiers: Esophagitis presence: without esophagitis Qualified Code(s): K21.9 - Gastro-esophageal reflux disease without esophagitis (8) Hypertension Current Visit: Yes Status: Chronic Qualifiers: Hypertension type: essential hypertension Qualified Code(s): I10 - Essential (primary) hypertension - Initial Treatment Plan Initial Treatment Plan: Psychoeducation.Detoxification.Medications : seroquel 200 mg po hs + depakote 250 mg po bid + ambien 5 mg po hs.Side effects/benefits discussed with the patient.She agrees with this plan.Observation.Valproic acid level is pending.
[2016-08-21] MEDS: hydrOXYzine PAMOATE 50 MG CAPSULE (FP) PO PRN (17:57)
[2016-08-21] MEDS: QUEtiapine FUMARATE 200 MG TABLET PO SCH (22:26)
[2016-08-21] MEDS: THIAMINE HCL 100 MG TABLET (FP) PO SCH (22:26)
[2016-08-21] MEDS: ZOLPIDEM TARTRATE 5 MG TABLET PO PRN (22:27)
[2016-08-21] MEDS: DIVALPROEX SODIUM 250 MG TABLET E.C. (FP) PO SCH (22:27)
[2016-08-21] MEDS: METHYL SALICYLATE/MENTHOL OINT 30 GM TUBE TP SCH (22:27)
[2016-08-22] MEDS: chlordiazePOXIDE HCL 25 MG CAPSULE PO SCH ×2 (05:55→10:18)
[2016-08-22] MEDS: LEVOFLOXACIN 500 MG TABLET (FP) PO SCH (05:55)
[2016-08-22] MEDS: hydrOXYzine PAMOATE 50 MG CAPSULE (FP) PO PRN (08:35)
--- NOTE | 2016-08-22 09:48 | PN ---
[facility] CIWA - CIWA Score Nausea/Vomitin-No Nausea/No Vomiting Muscle Tremors: 4-Moderate,w/Arms Extend Anxiety: 3 Agitation: 4-Moderately Restless Paroxysmal Sweats: 3 Orientation: 0-Oriented Tacttile Disturbances: 0-None Auditory Disturbances: 0-None Visual Disturbances: 0-None Headache: 0-None Present CIWA-Ar Total Score: 14 S COWS - Scale Resting Pulse: 1= [place] 81-100 Sweatin=Flushed/Facial Moisture Restless Observation: 1= Difficult to Sit Still Pupil Size: 0= Normal to Room Light Bone or Joint Aches: 2= Severe Diffuse Aches Runny Nose/ Eye Tearin= Runny Nose/Eyes GI Upset > 30mins: 0= None Tremor Observation of Outstretched Hands: 2= Slight Tremor Visible Yawning Observation: 0= None Anxiety or Irritability: 2=Irritable/Anxious Goose Flesh Skin: 0=Smooth Skin COWS Score: 12 S Progress Note (SOAP) Subjective: low back pain sweats interrupted sleep irritable Objective: 08/22/16 09:56 Vital Signs Temperature 97.6 F 08/22/16 07:01 Pulse Rate 77 08/22/16 07:01 Respiratory Rate 18 08/22/16 07:01 Blood Pressure 100/60 08/22/16 07:01 O2 Sat by Pulse Oximetry (%) Laboratory Tests 08/20/16 08/21/16 08/21/16 22:40 05:50 05:50 WBC 5.4 RBC 4.24 Hgb 12.4 Hct 37.3 MCV 88.1 MCHC 33.2 RDW 16.1 H Plt Count 170 MPV 9.8 Sodium 142 Potassium 4.1 Chloride 104 Carbon Dioxide 28 Anion Gap 10 BUN 16 Creatinine 0.9 Creat Clearance w eGFR > 60 Random Glucose 97 Calcium 8.8 Total Bilirubin 0.3 D AST 14 L ALT 17 Alkaline Phosphatase 85 D Total Protein 8.2 Albumin 4.1 Urine Color Yellow Urine Appearance Cloudy Urine pH 5.0 Ur Specific [place] 1.023 Urine Protein 1+ H Urine Glucose (UA) Negative Urine Ketones Negative Urine Blood 2+ H Urine Nitrite Positive Urine Bilirubin Negative Urine Urobilinogen Negative Ur Leukocyte Esterase 2+ H Urine RBC 4 Urine WBC 57 Ur Epithelial Cells Few Urine Bacteria Many Urine Mucus Few RPR Titer 08/21/16 05:50 WBC RBC Hgb Hct MCV MCHC RDW Plt Count MPV Sodium Potassium Chloride Carbon Dioxide Anion Gap BUN Creatinine Creat Clearance w eGFR Random Glucose Calcium Total Bilirubin AST ALT Alkaline Phosphatase Total Protein Albumin Urine Color Urine Appearance Urine pH Ur Specific [place] Urine Protein Urine Glucose (UA) Urine Ketones Urine Blood Urine Nitrite Urine Bilirubin Urine Urobilinogen Ur Leukocyte Esterase Urine RBC Urine WBC Ur Epithelial Cells Urine Bacteria Urine Mucus RPR Titer Nonreactive awake/alert ambulating no acute distress Assessment: 08/22/16 09:57 withdrawal sx Plan: continue detox increase fluids lidocaine patch analgesic balm
[2016-08-22] MEDS: LOSARTAN POTASSIUM 50 MG TABLET (FP) PO SCH (10:18)
[2016-08-22] MEDS: CHLORTHALIDONE 25 MG TABLET PO SCH (10:18)
[2016-08-22] MEDS: LIDOCAINE 5% TOPICAL PATCH TP SCH (10:18)
[2016-08-22] MEDS: METHADONE HCL 5 MG TABLET (FOR DETOX USE ONLY) PO SCH (10:18)
[2016-08-22] MEDS: PRENATAL VITAMINS W/ FOLIC ACID TABLET (FP) PO SCH (10:18)
[2016-08-22] MEDS: METHYL SALICYLATE/MENTHOL OINT 30 GM TUBE TP SCH ×2 (10:20→23:09)
[2016-08-22] MEDS: DIVALPROEX SODIUM 250 MG TABLET E.C. (FP) PO SCH ×2 (10:22→22:26)
[2016-08-22] MEDS: chlordiazePOXIDE HCL 25 MG CAPSULE PO PRN (15:25)
[2016-08-22] MEDS: chlordiazePOXIDE 5 MG CAPSULE PO SCH ×2 (17:14→22:26)
--- NOTE | 2016-08-22 20:10 | PN ---
[facility] Progress Note Note: RECEIVED NURSE CALL PATIENT NEEDED DEPAKOTE LEVEL CHART REVIEWED TOXICOLOGY RESULT TODAY MAY DISCUSS WITH PSYCHIATRIST FOR FURTHER NECESSARY BLOOD WORK CONTINUE DETOX
[2016-08-22] MEDS: QUEtiapine FUMARATE 200 MG TABLET PO SCH (22:25)
[2016-08-22] MEDS: ZOLPIDEM TARTRATE 5 MG TABLET PO PRN (22:26)
[2016-08-22] MEDS: THIAMINE HCL 100 MG TABLET (FP) PO SCH (22:26)
[2016-08-23] MEDS: chlordiazePOXIDE HCL 25 MG CAPSULE PO PRN (03:01)
[2016-08-23] MEDS: hydrOXYzine PAMOATE 50 MG CAPSULE (FP) PO PRN ×2 (03:01→14:46)
[2016-08-23] MEDS: LEVOFLOXACIN 500 MG TABLET (FP) PO SCH (05:30)
[2016-08-23] MEDS: chlordiazePOXIDE 5 MG CAPSULE PO SCH ×2 (05:31→10:25)
[2016-08-23] MEDS: METHYL SALICYLATE/MENTHOL OINT 30 GM TUBE TP SCH (10:24)
[2016-08-23] MEDS: METHADONE HCL 5 MG TABLET (FOR DETOX USE ONLY) PO SCH (10:25)
[2016-08-23] MEDS: PRENATAL VITAMINS W/ FOLIC ACID TABLET (FP) PO SCH (10:25)
[2016-08-23] MEDS: LOSARTAN POTASSIUM 50 MG TABLET (FP) PO SCH (10:25)
[2016-08-23] MEDS: CHLORTHALIDONE 25 MG TABLET PO SCH (10:25)
[2016-08-23] MEDS: DIVALPROEX SODIUM 250 MG TABLET E.C. (FP) PO SCH ×2 (10:25→22:47)
[2016-08-23] MEDS: LIDOCAINE 5% TOPICAL PATCH TP SCH (10:27)
--- NOTE | 2016-08-23 13:43 | PN ---
BHS Progress Note (SOAP) Subjective: interrupted sleep, sweats, shakes Objective: 08/23/16 13:42 Vital Signs Temperature 98.2 F 08/23/16 09:39 Pulse Rate 95 H 08/23/16 09:39 Respiratory Rate 18 08/23/16 09:39 Blood Pressure 119/72 08/23/16 09:39 O2 Sat by Pulse Oximetry (%) Laboratory Tests 08/20/16 08/21/16 08/21/16 22:40 05:50 05:50 WBC 5.4 RBC 4.24 Hgb 12.4 Hct 37.3 MCV 88.1 MCHC 33.2 RDW 16.1 H Plt Count 170 MPV 9.8 Sodium 142 Potassium 4.1 Chloride 104 Carbon Dioxide 28 Anion Gap 10 BUN 16 Creatinine 0.9 Creat Clearance w eGFR > 60 Random Glucose 97 Calcium 8.8 Total Bilirubin 0.3 D AST 14 L ALT 17 Alkaline Phosphatase 85 D Total Protein 8.2 Albumin 4.1 Urine Color Yellow Urine Appearance Cloudy Urine pH 5.0 Ur Specific [place] 1.023 Urine Protein 1+ H Urine Glucose (UA) Negative Urine Ketones Negative Urine Blood 2+ H Urine Nitrite Positive Urine Bilirubin Negative Urine Urobilinogen Negative Ur Leukocyte Esterase 2+ H Urine RBC 4 Urine WBC 57 Ur Epithelial Cells Few Urine Bacteria Many Urine Mucus Few Valproic Acid RPR Titer 08/21/16 08/22/16 05:50 06:00 WBC RBC Hgb Hct MCV MCHC RDW Plt Count MPV Sodium Potassium Chloride Carbon Dioxide Anion Gap BUN Creatinine Creat Clearance w eGFR Random Glucose Calcium Total Bilirubin AST ALT Alkaline Phosphatase Total Protein Albumin Urine Color Urine Appearance Urine pH Ur Specific [place] Urine Protein Urine Glucose (UA) Urine Ketones Urine Blood Urine Nitrite Urine Bilirubin Urine Urobilinogen Ur Leukocyte Esterase Urine RBC Urine WBC Ur Epithelial Cells Urine Bacteria Urine Mucus Valproic Acid 17.213 L RPR Titer Nonreactive pt aox3 in nad ambulating Assessment: 08/23/16 13:43 withdrawl sx;s Plan: cont. detox increase fluids
[2016-08-23] MEDS: chlordiazePOXIDE HCL 10 MG CAPSULE PO SCH ×2 (17:52→22:48)
[2016-08-23] MEDS: QUEtiapine FUMARATE 200 MG TABLET PO SCH (22:47)
[2016-08-23] MEDS: THIAMINE HCL 100 MG TABLET (FP) PO SCH (22:47)
[2016-08-23] MEDS: ZOLPIDEM TARTRATE 5 MG TABLET PO PRN (22:48)
[2016-08-24] MEDS: chlordiazePOXIDE HCL 10 MG CAPSULE PO SCH ×2 (06:04→10:44)
[2016-08-24] MEDS ORDERED: METHADONE HCL 10 MG TABLET (FOR DETOX USE ONLY) PO SCH (10:00)
[2016-08-24 10:44] VITALS: BP 128/76; PULSE 104; TEMP 98.6
[2016-08-24] MEDS: LOSARTAN POTASSIUM 50 MG TABLET (FP) PO SCH (10:44)
[2016-08-24] MEDS: LIDOCAINE 5% TOPICAL PATCH TP SCH (10:44)
[2016-08-24] MEDS: CHLORTHALIDONE 25 MG TABLET PO SCH (10:44)
[2016-08-24] MEDS: PRENATAL VITAMINS W/ FOLIC ACID TABLET (FP) PO SCH (10:44)
[2016-08-24] MEDS: DIVALPROEX SODIUM 250 MG TABLET E.C. (FP) PO SCH (10:44)
[2016-08-24] MEDS: METHYL SALICYLATE/MENTHOL OINT 30 GM TUBE TP SCH (10:46)
--- NOTE | 2016-08-24 18:56 | DS ---
[facility] Detox Discharge Summary Admission Date: 08/20/16 Discharge Date: 08/24/16 - History Present History: Alcohol Dependence, Opioid Dependence Additional Comments: ADVISED PT. TO FOLLOW-UP WITH [facility] RECEIVING CLERK REHAB MEDICAL PROVIDER AFTER DISCHARGE FROM DETOX FOR GENERAL MEDICAL ASSESSMENT. Pertinent Past History: GERD, HTN, Bi-Polar Disorder. - Physical Exam Results Vital Signs: Vital Signs Temperature 98.6 F 08/24/16 10:44 Pulse Rate 104 H 08/24/16 10:44 Respiratory Rate 20 08/24/16 10:44 Blood Pressure 128/76 08/24/16 10:44 O2 Sat by Pulse Oximetry (%) Pertinent Admission Physical Exam Findings: WITHDRAWAL SYMPTOMS. Laboratory Last Values WBC 5.4 K/mm3 (4.0-10.0) 08/21/16 05:50 RBC 4.24 M/mm3 (3.60-5.2) 08/21/16 05:50 Hgb 12.4 GM/dL (10.7-15.3) 08/21/16 05:50 Hct 37.3 % (32.4-45.2) 08/21/16 05:50 MCV 88.1 fl (80-96) 08/21/16 05:50 MCHC 33.2 g/dl (32.0-36.0) 08/21/16 05:50 RDW 16.1 % (11.6-15.6) H 08/21/16 05:50 Plt Count 170 K/MM3 (134-434) 08/21/16 05:50 MPV 9.8 fl (7.5-11.1) 08/21/16 05:50 Sodium 142 mmol/L (136-145) 08/21/16 05:50 Potassium 4.1 mmol/L (3.5-5.1) 08/21/16 05:50 Chloride 104 mmol/L (98-107) 08/21/16 05:50 Carbon Dioxide 28 mmol/L (21-32) 08/21/16 05:50 Anion Gap 10 (8-16) 08/21/16 05:50 BUN 16 mg/dL (7-18) 08/21/16 05:50 Creatinine 0.9 mg/dL (0.55-1.02) 08/21/16 05:50 Creat Clearance w eGFR > 60 (>60) 08/21/16 05:50 Random Glucose 97 mg/dL (74-106) 08/21/16 05:50 Calcium 8.8 mg/dL (8.5-10.1) 08/21/16 05:50 Total Bilirubin 0.3 mg/dL (0.2-1.0) D 08/21/16 05:50 AST 14 U/L (15-37) L 08/21/16 05:50 ALT 17 U/L (12-78) 08/21/16 05:50 Alkaline Phosphatase 85 U/L (45-117) D 08/21/16 05:50 Total Protein 8.2 g/dl (6.4-8.2) 08/21/16 05:50 Albumin 4.1 g/dl (3.4-5.0) 08/21/16 05:50 Urine Color Yellow 08/20/16 22:40 Urine Appearance Cloudy 08/20/16 22:40 Urine pH 5.0 (5.0-8.0) 08/20/16 22:40 Ur Specific [place] 1.023 (1.001-1.035) 08/20/16 22:40 Urine Protein 1+ (NEGATIVE) H 08/20/16 22:40 Urine Glucose (UA) Negative (NEGATIVE) 08/20/16 22:40 Urine Ketones Negative (NEGATIVE) 08/20/16 22:40 Urine Blood 2+ (NEGATIVE) H 08/20/16 22:40 Urine Nitrite Positive (NEGATIVE) 08/20/16 22:40 Urine Bilirubin Negative (NEGATIVE) 08/20/16 22:40 Urine Urobilinogen Negative E.U./dl (0.2-1.0) 08/20/16 22:40 Ur Leukocyte Esterase 2+ (NEGATIVE) H 08/20/16 22:40 Urine RBC 4 /hpf (0-3) 08/20/16 22:40 Urine WBC 57 /hpf (3-5) 08/20/16 22:40 Ur Epithelial Cells Few /hpf (FEW) 08/20/16 22:40 Urine Bacteria Many /hpf (NONE SEEN) 08/20/16 22:40 Urine Mucus Few 08/20/16 22:40 Valproic Acid 17.213 ug/ml (50-100) L 08/22/16 06:00 RPR Titer Nonreactive (NONREACTIVE) 08/21/16 05:50 LABS NOTED. - Treatment Hospital Course: Detox Protocol Followed, Detoxed Safely, Responded well, Discharged Condition Good, Rehab Referral Accepted Patient has Accepted a Rehab Referral to: YES. - Medication Discharge Medications: Ambulatory Orders Azilsartan Med/Chlorthalidone [Edarbyclor 40-25 mg Tablet] 1 each PO DAILY 12/06 Divalproex [Depakote -] 250 mg PO BID #60 tablet.ec 07/18/16 Quetiapine Fumarate [Seroquel -] 300 mg PO HS #30 tab 07/18/16 Divalproex [Depakote -] 500 mg PO HS #30 tablet.ec 08/21/16 Quetiapine Fumarate [Seroquel -] 200 mg PO HS #30 tab 08/21/16 - Diagnosis (1) Alcohol dependence with uncomplicated withdrawal Status: Acute (2) Nicotine dependence Status: Chronic Qualifiers: Nicotine product type: cigarettes Substance use status: uncomplicated Qualified Code(s): F17.210 - Nicotine dependence, cigarettes, uncomplicated (3) Opioid dependence with withdrawal Status: Acute (4) Sedative, hypnotic or anxiolytic dependence with withdrawal, uncomplicated Status: Acute (5) Substance induced mood disorder Status: Acute (6) Bipolar disorder Status: Chronic Qualifiers: Active/Remission status: remission status unspecified Qualified Code (s): F31.9 - Bipolar disorder, unspecified (7) GERD (gastroesophageal reflux disease) Status: Chronic Qualifiers: Esophagitis presence: without esophagitis Qualified Code(s): K21.9 - Gastro-esophageal reflux disease without esophagitis (8) Hypertension Status: Chronic Qualifiers: Hypertension type: essential hypertension Qualified Code(s): I10 - Essential (primary) hypertension - AMA Did Patient Leave Against Medical Advice: No
[2016-08-25] MEDS ORDERED: METHADONE HCL 5 MG TABLET (FOR DETOX USE ONLY) PO SCH (06:00)
== END 2016-08-24 12:55 | disposition other institution (70) | DRG 897 ==
LOC: YASAS 11:55 → Y6N 15:53
PROVIDERS: ADMIT Internal Medicine Addiction Medicine; ATTEND Internal Medicine Addiction Medicine
PROC: HZ2ZZZZ Detoxification Services for Substance Abuse Treatment (ICD-10-PCS; principal; 2016-08-24)
DX: F19.230 Other psychoactive substance dependence with withdrawal, uncomplicated (principal); F11.23 Opioid dependence with withdrawal; F13.230 Sedative, hypnotic or anxiolytic dependence with withdrawal, uncomplicated; F10.230 Alcohol dependence with withdrawal, uncomplicated; F17.210 Nicotine dependence, cigarettes, uncomplicated; F19.24 Other psychoactive substance dependence with psychoactive substance-induced mood disorder; F31.9 Bipolar disorder, unspecified; I10 Essential (primary) hypertension; K21.9 Gastro-esophageal reflux disease without esophagitis
CPT/HCPCS: 36415; 80053; 80164; 81003; 81015; 85027; 86593; 93005; 93010